=== PATIENT | female | born 1945 | race Caucasian/White ===

== ENCOUNTER → 2017-01-20 | Outpatient (CLI) | payer OTHER, BC | END | disposition home or self-care (01) | LOC: MA 09:53 | PROC: BH02ZZZ Plain Radiography of Bilateral Breasts (ICD-10-PCS; principal; 2017-01-20) | DX: Z12.39 Encounter for other screening for malignant neoplasm of breast (principal) | CPT/HCPCS: G0202 ==

== ENCOUNTER 2017-05-13 06:53 | Day surgery (SDC) | payer OTHER, BC ==
[~2017-05-13] VITALS: Ht 170.2 cm; Wt 81.6 kg
[2017-05-13 07:57] VITALS: BP 112/76
[2017-05-13 10:33] VITALS: BP 108/74
== END 2017-05-13 10:20 | disposition home or self-care (01) ==
LOC: DS 06:53 → OR 09:30 → DS 10:20
PROVIDERS: Internal Medicine
PROC: 0DB68ZX Excision of Stomach, Via Natural or Artificial Opening Endoscopic, Diagnostic (ICD-10-PCS; principal; 2017-05-13 09:30)
DX: K22.10 Ulcer of esophagus without bleeding (principal); K44.9 Diaphragmatic hernia without obstruction or gangrene; K29.70 Gastritis, unspecified, without bleeding; R73.03 Prediabetes; I10 Essential (primary) hypertension; E78.5 Hyperlipidemia, unspecified; Z68.28 Body mass index [BMI] 28.0-28.9, adult; Z87.891 Personal history of nicotine dependence
CPT/HCPCS: 43235; J1200; J1610; J2250; J2310; J3010; J3490

== ENCOUNTER 2020-04-26 02:34 | Emergency (ER) | payer BC ==
[~2020-04-26] VITALS: Ht 170.2 cm; Wt 77.1 kg
[2020-04-26 02:40] VITALS: Ht 170.2 cm; Wt 77.1 kg
[2020-04-26 07:11] VITALS: BP 107/74
== END 2020-04-26 07:11 | disposition home or self-care (01) ==
LOC: ED 02:34
DX: K59.00 Constipation, unspecified (principal)